=== PATIENT | male | born 1990 ===

== ENCOUNTER 2024-05-29 15:10 | Emergency (ER) | payer MEDICAID, OTHER ==
[~2024-05-29] VITALS: Ht 165.1 cm; Wt 66.0 kg
[2024-05-29 15:18] VITALS: O2SAT 98
[2024-05-29] MEDS: IBUPROFEN 600MG TABLET PO ONE (16:14)
[2024-05-29 17:25] VITALS: BP 125/82; PULSE 68; RESP 12; TEMP 37.11408; O2SAT 100
== END 2024-05-29 18:01 | disposition home or self-care (01) ==
LOC: ER 15:10
DX: M79.671 Pain in right foot (principal); X58.XXXA Exposure to other specified factors, initial encounter; Y93.02 Activity, running; Y92.89 Other specified places as the place of occurrence of the external cause; Y99.8 Other external cause status
CPT/HCPCS: 73610; 73630; 29515; 99284; Z7610